=== PATIENT | male | born 1960 | race African-American/Black ===

== ENCOUNTER 2020-10-15 17:16 | Inpatient (IN) | payer MEDICARE ==
[~2020-10-15] VITALS: Ht 180.3 cm; Wt 91.2 kg
[2020-10-15] MEDS ORDERED: OLAN5TAB3 PO (17:34)
--- NOTE | 2020-10-15 17:38 | NUR ---
patient brought in by ambulance transfer from [facility] on a hold 5250 gravely disabled and a danger to self. reported by transport that patient was [place] sitting [place] the edge of over[place] and becoming combative with police and was taken to [facility] for evaluation where he was put on the hold. patient is getting cleared for admission at this time
--- NOTE | 2020-10-15 17:42 | NUR ---
patient assigned to room 145C admitting nurse is Cayla MARQUEZ.
[2020-10-15 17:49] LABS: BASOPHILS % (AUTO) 0.6 % (0.0-2.0); EOSINOPHILS # (AUTO) 0.1 K/uL (0.0-0.7); EOSINOPHILS % (AUTO) 0.8 % (0.0-7.0); HEMATOCRIT 42.9 % (36.7-47.1); HEMOGLOBIN 14.8 g/dL (12.5-16.3); LYMPHOCYTES # (AUTO) 1.9 K/uL (20.0-40.0); LYMPHOCYTES % (AUTO) 27.8 % (20.5-51.5); MEAN CORPUSCULAR HEMOGLOBIN 28.5 uug (23.8-33.4); MEAN CORPUSCULAR HGB CONC 35 g/dL (32.5-36.3); MEAN CORPUSCULAR VOLUME 82.5 fL (73.0-96.2); MONOCYTES # (AUTO) 0.5 K/uL (2.0-10.0); MONOCYTES % (AUTO) 7.9 % (0.0-11.0); NEUTROPHILS # (AUTO) 4.3 K/uL (1.8-8.9); NEUTROPHILS % (AUTO) 62.9 % (38.5-71.5); PLATELET COUNT (AUTO) 235 K/uL (152-348); WHITE BLOOD COUNT (AUTO) 6.8 K/uL (3.6-10.2)
[2020-10-15 17:51] LABS: CARBON DIOXIDE 30 mmol/L (21-32); CHLORIDE 100 mmol/L (98-107); GLUCOSE 101 mg/dL (74-106); UREA NITROGEN, BLOOD 22 mg/dL (7-18)
[2020-10-15 17:55] LABS: ETHANOL < 3 MG/DL (0-0)
[2020-10-15 17:57] LABS: ACETAMINOPHEN < 2.0 ug/mL (10-30); ALANINE AMINOTRANSFERASE 39 U/L (16-63); ALKALINE PHOSPHATASE 77 U/L (50-136); ASPARTATE AMINOTRANSFERASE 25 U/L (15-37); BILIRUBIN,DIRECT 0.1 mg/dL (0.0-0.2); BILIRUBIN,TOTAL 0.3 mg/dL (0.2-1.0); TOTAL PROTEIN, SERUM 8.6 g/dL (6.4-8.2)
--- NOTE | 2020-10-15 18:22 | NUR ---
report given to Saul MARQUEZ at this time.
--- NOTE | 2020-10-15 19:15 | NUR ---
Pt was brought on the unit at 1845. Pt is nonsensical and disorganized. Pt is disheveled and unkempt. No agitation. Pt is not able to answer questions, asking for food. A meal was provided. Skin check was done, skin is intact. Dr. Hwang and dr. England were notified. No family to be notified. Pt is unable to provide history. Report endorsed.
[2020-10-15] MEDS ORDERED: MAG HYDROX/AL HYDROX/SIMETH 30 ML LIQUID UDC PO PRN (19:30)
[2020-10-15] MEDS ORDERED: ACETAMINOPHEN 325 MG TABLET PO PRN (19:30)
[2020-10-15] MEDS ORDERED: MAGNESIUM HYDROXIDE 30 ML LIQUID UDC PO PRN (19:30)
[2020-10-15] MEDS ORDERED: BLOOD SUGAR DIAGNOSTIC 1 EACH STRIP VI ONE (20:00)
[2020-10-15 20:55] VITALS: BP 103/78
--- NOTE | 2020-10-15 21:11 | NUR ---
GPS: Pt.resting comfortably at this time. Pt's rights handbook and advisement given. Unit rules were explained. Pt.remains disorganized,rambling but not agitated. Safe environment provided. Needs attended.
--- NOTE | 2020-10-16 06:26 | NUR ---
GPS: Pt.currently in dining room area reading his bible. Remains disorganized,non-sensical,rambling at times and hyper-sabianism. No increased agitation noted. Safe environment provided. Will continue to monitor.
[2020-10-16 07:12] LABS: *BILIRUBIN,URIN NEGATIVE (NEGATIVE); *CLARITY,URINE CLEAR (CLEAR); *COLOR,URINE YELLOW (YELLOW); *KETONES,URINE NEGATIVE (NEGATIVE); *UROBILINOGEN,URINE 0.2 E.U./dl (NORMAL); LEUKOCYTE ESTERASE ,URINE NEGATIVE (NEGATIVE); NITRITE, URINE NEGATIVE (NEGATIVE); PH,URINE 5.5 (5.0-8.0); UGLUCOSE NEGATIVE (NEGATIVE)
[2020-10-16 07:17] LABS: *BLOOD, URINE TRACE (NEGATIVE)
[2020-10-16 07:21] LABS: *AMPHETAMINE, URINE NEGATIVE (NEGATIVE); *CANNABINOID, URINE NEGATIVE (NEGATIVE); *COCCAINE, URINE NEGATIVE (NEGATIVE); *OPIATE, URINE NEGATIVE (NEGATIVE); *PHENCYCLIDINE SCREEN,URINE NEGATIVE (NEGATIVE)
[2020-10-16 07:30] VITALS: BP 106/67
--- NOTE | 2020-10-16 08:26 | NUR ---
Firearms Report: Motor Vehicle Emissions Inspector completed and submitted a [employer] firearms report for 5150 grave disability certification. A copy of report has been placed in patient chart.
[2020-10-16 09:53] LABS: BACTERIA,URINE FEW /HPF (NONE SEEN); RBC,URINE 0-3 /HPF (0-3); SQUAMOUS EPITHELIAL CELL,UR FEW /HPF (NONE SEEN); WBC,URINE 0-3 /HPF (0-3)
--- NOTE | 2020-10-16 11:19 | NUR ---
Initial Discharge Plan: Patient is homeless and will require a placement. Patient unable to state at the moment what his discharge plan would be. Patient does not have any family members at this time. This SW will work with the patient and MD to help coordinate proper discharge.
--- NOTE | 2020-10-16 11:20 | NUR ---
Treatment Plan: This SW discussed treatment plan and discharge plan with pt. Pt appeared to be labile. Patient refused to sign his discharge plan due to being verbally aggressive.
--- NOTE | 2020-10-16 11:49 | NUR ---
Court Hearing: Patient's court hearing for 1390 was today and it was upheld for GD.
[2020-10-16] MEDS: OLANZAPINE 5 MG TABLET PO SCH ×2 (12:45→17:00)
[2020-10-16] MEDS: DIVALPROEX SPRINKLE 125 MG CAP.SPRINK PO SCH ×2 (13:00→17:00)
--- NOTE | 2020-10-16 13:57 | NUR ---
Patient refused due zyprexa and depakote at this time. Explained risks and benefits but patient still refused medications.
--- NOTE | 2020-10-16 14:35 | NUR ---
KEATON Individual Therapy: orchard worker met with patient for brief counseling to address patient's aggressive behavior. Patient presented with labile mood. Patient was hyperverbal and tangential. Patient was suspicious of this staff and did not want to have a conversation at this time. KEATON unable to conduct therapy.
[2020-10-16 16:45] VITALS: BP 93/67
[2020-10-16] MEDS: LORAZEPAM 1 MG TABLET PO PRN (20:28)
[2020-10-16] MEDS: ZOLPIDEM 5 MG TABLET PO PRN (23:29)
--- NOTE | 2020-10-16 23:38 | NUR ---
Up and about. Patient hyperverbal. No signs of aggressive behavior. Was able to give ativan without difficulty. Stays most in the lounge. Continent of bowel and bladder. Will monitor for any behavioral issues. Request for sleeping pill, given as ordered.
[2020-10-17 07:30] VITALS: BP 127/92
[2020-10-17] MEDS: DIVALPROEX SPRINKLE 125 MG CAP.SPRINK PO SCH ×3 (09:00→16:42)
[2020-10-17] MEDS: OLANZAPINE 5 MG TABLET PO SCH ×2 (09:00→16:43)
[2020-10-17] MEDS ORDERED: diphenhydrAMINE 50 MG/1 ML VIAL IM ONE (11:15)
[2020-10-17] MEDS ORDERED: HALOPERIDOL LACTATE 5 MG/1 ML VIAL IM ONE (11:15)
--- NOTE | 2020-10-17 11:16 | NUR ---
Emergency IM medication seen and Examine by Dr. Hwang with orders to give IM medication secondary to patient behaviort of manic, hyperverbal, unable to redirect, Patient received and tolerated the medication , VS WNL
--- NOTE | 2020-10-17 14:30 | NUR ---
SW Individual Therapy: fruit ii farmworker met with patient for brief counseling to address patient's aggressive behavior. Patient presented with labile mood. Patient appeared angry and uncooperative with this SW. SW unable to conduct therapy at this time.
[2020-10-17 16:55] VITALS: BP 140/90
--- NOTE | 2020-10-17 16:59 | NUR ---
patient continously refusing oral medication, patient redirectable, monitored q15 minutes no sign of distress at this time
[2020-10-17 20:21] VITALS: BP 119/80
[2020-10-18] MEDS: LORAZEPAM 1 MG TABLET PO PRN (03:17)
--- NOTE | 2020-10-18 05:56 | NUR ---
GPS: Remain cooperative with staff. Pt.currently sitting in dining room area reading his bible. Remains disorganized,rambling at times and hyper-yarsanism. slept 5.15 hrs through the night.No increased agitation noted at this time. ativan 1 mg po given @ 03:30 am per patient request for agitation and effective. Safe environment provided. Will continue to monitor.
[2020-10-18] MEDS: DIVALPROEX SPRINKLE 125 MG CAP.SPRINK PO SCH ×3 (08:22→17:00)
[2020-10-18] MEDS: OLANZAPINE 5 MG TABLET PO SCH ×2 (08:22→17:00)
[2020-10-18 08:30] VITALS: BP 116/82
--- NOTE | 2020-10-18 13:36 | NUR ---
Received patient AOx1, patient calm and cooperative, redirectable, compliant with medication, patient seen taking naps and reading in his room, mentally preoccupied ,, assisted with ADL, denies SI and HI, patient isolative , monitored [id number] for safety and elopement risk, no sign of distress at this time
[2020-10-18 16:20] VITALS: BP 123/75
[2020-10-18 20:00] VITALS: BP 118/81
--- NOTE | 2020-10-19 01:34 | NUR ---
patient c/o headache.tylenol 650 mg po given.
--- NOTE | 2020-10-19 02:35 | NUR ---
patient stated i am feeling better now. prn effective for pain.
--- NOTE | 2020-10-19 06:07 | NUR ---
GPS: Remain cooperative with staff. Remains disorganized,rambling at times and hyper-sabianist. slept 3.30 hrs through the night. No increased agitation noted at this time. Safe environment provided. Will continue to monitor.
[2020-10-19 07:30] VITALS: BP 137/88
[2020-10-19] MEDS: DIVALPROEX SPRINKLE 125 MG CAP.SPRINK PO SCH ×3 (08:37→16:38)
[2020-10-19] MEDS: OLANZAPINE 5 MG TABLET PO SCH ×2 (08:38→16:38)
[2020-10-19 15:17] VITALS: BP 128/78
--- NOTE | 2020-10-19 18:41 | NUR ---
Received patient confused and disoriented x2 talking to himself at all time,refused all medication No aggressive behavior noted at this time. pacing in hallway with poor insight and poor judgment Safe environment provided. Re-directed as needed.
--- NOTE | 2020-10-19 20:00 | NUR ---
RECEIVED PATIENT IN THE HALLWAY. HE IS NOTED A/O X 1. HE IS PACING BOBBI HALLWAY. CONTINUE WITH DISORGANIZED SPEECH, HYPERVERBAL, TANGENTAL. APPEARS TO RESPOND TO INTERNAL STIMULI. POOR HISTORIAN. HE IS HARD TO REDIRECT. REQUIRED MULTIPLE REDIRECTION AND TO SET LIMITS. REQUIRED REALITY CHECKS. NO SCHEDULE QHS MEDICATION AT THIS TIME. V/S STABLE. PATIENT IS REASSURED FOR HIS SAFETY. SAFETY AND FALL PRECAUTION IN PLACE. WILL CONTINUE TO MONITOR.
[2020-10-19 20:27] VITALS: BP 132/76
--- NOTE | 2020-10-19 23:45 | NUR ---
PATIENT NOTED AWAKE. STANDING IN THE DOORWAY OF HIS ROOM. HE IS NOTED READING AND TALKING TO HIMSELF. HE REQUIRED CONSTANT MONITORING AND REDIRECTION. HE WAS OFFERED DONNA BRADFORD PRN BUT HE REFUSED. WILL CONTINUE TO MONITOR CLOSELY.
--- NOTE | 2020-10-20 06:58 | NUR ---
patient slept for approx. 1/2 through the night. He is observed talking to himself. Word salad, not making any sense, and easily irritable.
[2020-10-20 07:30] VITALS: BP 150/89
[2020-10-20] MEDS: OLANZAPINE 5 MG TABLET PO SCH ×2 (08:34→17:00)
[2020-10-20] MEDS: DIVALPROEX SPRINKLE 125 MG CAP.SPRINK PO SCH ×4 (08:34→17:00)
[2020-10-20] MEDS ORDERED: HALOPERIDOL LACTATE 5 MG/1 ML VIAL IM ONE (13:00)
[2020-10-20] MEDS ORDERED: diphenhydrAMINE 50 MG/1 ML VIAL IM ONE (13:00)
--- NOTE | 2020-10-20 13:00 | NUR ---
Dr Heurta psychiatrist here to witness pt pacing around hallway and talking to himself. Notified Dr Huerta that pt did not sleep from last night and patient just refused his depakote. prior intervention of decreasing stimuli, keeping room quiet, distraction, and increased observation non effective. Pt becoming aggressive and threw a salad to dr Huerta. New orders received and carried out.
--- NOTE | 2020-10-20 13:30 | NUR ---
Gave Haldol and Benadryl as ordered IM on right deltoid for agitation and combativeness. Will monitor patient.
--- NOTE | 2020-10-20 14:00 | NUR ---
Pt sleeping noted respirations 17/min. medications effective. See behavioral violent flow sheet for respiration assessments.
--- NOTE | 2020-10-20 16:00 | NUR ---
PT refused full set of vitals from UPSET WELDING MACHINE OPERATOR and pt went back to sleep resp 18.
--- NOTE | 2020-10-20 21:00 | NUR ---
RECEIVED PATIENT IN THE HALLWAY. HE IS NOTED A/O X1. CONTINUE TALKING TO HIMSELF. HE DOES NOT MAKE ANY SENSE; HOWEVER, HE IS ABLE TO MAKE HIS NEEDS KNOWN. AFFECT IS BLUNTED MOOD IS IRRITABLE. PATIENT PRESENTS WITH DELUSIONAL THINKING RESPONDING TO INTERNAL STIMULI AND DISORGANIZED SPEECH. HE IS NOTED REEDING BOOKS, PAGES ARE SCATTERED ALL OVER HIS BED, CLUTTER. HE REQUIRED MULTIPLE REDIRECTION HE IS HARD TO REDIRECT. NO SCHEDULE [facility] MEDS AT THIS TIME. PATIENT REFUSED V/S. PO FLUIDS AND SNACK WERE GIVEN. WILL CONTINUE TO MONITOR.
--- NOTE | 2020-10-21 01:30 | NUR ---
PATIENT NOTED AWAKE. HE IS SITTING IN THE DAY ROOM READING A BOOK WITHOUT TALKING TO HIMSELF. PAGES SCATTERED ALL OVER THE TABLE. HE IS HARD TO REDIRECT, GETS EASILY IRRITABLE. HE REFUSED PO PRN "SLEEPING PILL". HE STATED "I DON'T TAKE MEDICATIONS". WILL CONTINUE TO MONITOR.
--- NOTE | 2020-10-21 06:40 | NUR ---
patient did not sleep last night. He was observed sitting in a chair reading a book and the bible. he was observed flipping pages over and over. Refused any PO PRN medication for insomnia. will continue to monitor.
[2020-10-21 07:30] VITALS: BP 123/80
--- NOTE | 2020-10-21 08:00 | NUR ---
pt hyperverbal talking to himself continuously. Pt reading his bible on hand and walks up and down the hallway.
[2020-10-21] MEDS: OLANZAPINE 5 MG TABLET PO SCH ×3 (08:24→21:00)
[2020-10-21] MEDS: DIVALPROEX SPRINKLE 125 MG CAP.SPRINK PO SCH ×3 (08:26→21:00)
[2020-10-21] MEDS ORDERED: HALOPERIDOL LACTATE 5 MG/1 ML VIAL IM PRN ×2 (10:15→17:00)
[2020-10-21] MEDS ORDERED: diphenhydrAMINE 50 MG/1 ML VIAL IM PRN (10:15)
[2020-10-21] MEDS ORDERED: OLANZAPINE 5 MG TABLET PO SCH (13:00)
--- NOTE | 2020-10-21 13:55 | NUR ---
KEATON Individual Therapy: sand car worker met with patient for brief counseling to address patient's aggressive behavior. Patient presented with labile mood. Patient pacing the hallway and responding to internal stimuli. Patient unable to conduct therapy at this time.
--- NOTE | 2020-10-21 18:30 | NUR ---
PT took his pills today. Pt slept 3 hrs this shift. Pt pacing in hallway and continues to talk to himself.
[2020-10-21 20:15] VITALS: BP 110/70
[2020-10-21] MEDS: diphenhydrAMINE 50 MG/1 ML VIAL IM PRN (21:02)
--- NOTE | 2020-10-22 06:34 | NUR ---
Patient refused p.o meds last night. IM given.Patient slept 4 hrs.Pacing back and forth the hallway this morning.Able to re-direct patient.
[2020-10-22] MEDS: OLANZAPINE 5 MG TABLET PO SCH ×3 (08:23→20:48)
[2020-10-22] MEDS: DIVALPROEX SPRINKLE 125 MG CAP.SPRINK PO SCH ×3 (08:23→20:48)
--- NOTE | 2020-10-22 13:23 | NUR ---
KEATON Individual Therapy: electrical lineworker met with patient for brief counseling to address patient's aggressive behavior. Patient presented with labile mood. Patient pacing the hallway and unable to have a proper conversation. Patient is responding to internal stimuli. Patient's speech is unclear. SW unable to conduct therapy at this time.
[2020-10-22 16:00] VITALS: BP 122/89
[2020-10-22 20:17] VITALS: BP 121/84
[2020-10-23] MEDS: ZOLPIDEM 5 MG TABLET PO PRN (00:20)
--- NOTE | 2020-10-23 00:21 | NUR ---
GPS: PATIENT UNABLE TO SLEEP. AMBIEN 5 MG PO GIVEN FOR SLEEP.
--- NOTE | 2020-10-23 06:19 | NUR ---
GPS: Remain cooperative with staff. Remains disorganized,rambling at times and hyper-hindu. slept 6.30 hrs through the night. after ambien 5 mg po given for sleep. No increased agitation noted at this time. per patient request for agitation and effective. Safe environment provided. Will continue to monitor.
[2020-10-23 07:30] VITALS: BP 124/70
[2020-10-23] MEDS: DIVALPROEX SPRINKLE 125 MG CAP.SPRINK PO SCH ×2 (08:46→20:24)
[2020-10-23] MEDS: OLANZAPINE 5 MG TABLET PO SCH (08:46)
[2020-10-23] MEDS ORDERED: HALOPERIDOL LACTATE 5 MG/1 ML VIAL IM PRN (13:33)
[2020-10-23] MEDS ORDERED: DIVALPROEX SPRINKLE 125 MG CAP.SPRINK PO ONE (13:45)
[2020-10-23] MEDS ORDERED: OLANZAPINE 5 MG TABLET PO ONE (13:45)
[2020-10-23 16:00] VITALS: BP 108/81
[2020-10-23] MEDS ORDERED: OLANZAPINE 5 MG TABLET PO SCH (18:00)
[2020-10-23 20:30] VITALS: BP 118/76
[2020-10-24] MEDS: ZOLPIDEM 5 MG TABLET PO PRN (00:59)
--- NOTE | 2020-10-24 05:40 | NUR ---
GPS: Remain cooperative with staff. Remains disorganized,rambling at times and hyper-islam. after Ambien 5 mg po given for sleep. No increased agitation noted at this time. per patient request for agitation and effective. Safe environment provided. Will continue to monitor.
--- NOTE | 2020-10-24 06:10 | NUR ---
SLEPT 7.30 HRS THROUGH THE NIGHT.
[2020-10-24] MEDS ORDERED: HALOPERIDOL LACTATE 5 MG/1 ML VIAL IM PRN (08:30)
[2020-10-24] MEDS: CLONAZEPAM 0.5 MG TABLET PO SCH ×4 (08:40→16:20)
[2020-10-24] MEDS: DIVALPROEX SPRINKLE 125 MG CAP.SPRINK PO SCH ×2 (08:40→21:20)
[2020-10-24] MEDS: HALOPERIDOL 5 MG TABLET PO SCH ×5 (08:40→21:20)
[2020-10-24] MEDS: BENZTROPINE MESYLATE 1 MG TABLET PO SCH ×2 (08:40→16:20)
[2020-10-24] MEDS ORDERED: chlorproMAZINE 50 MG/2 ML AMPUL IM ONE (12:30)
[2020-10-24] MEDS: diphenhydrAMINE 50 MG/1 ML VIAL IM PRN (12:37)
[2020-10-24 16:00] VITALS: BP 112/73
--- NOTE | 2020-10-24 17:34 | NUR ---
RECEIVED PATIENT MANIC , HYPERVERBAL, VERBALLY ABUSIVE, PACING IN THE HALLWAY, PATIENT THREW FOOD IN THE NURSING STATION AND URINATES IN THE DINING ROOM, PATIENT APPEARS DISORGANIZE, DELUSIONAL,THREW HIS ORAL MEDICATION DURING 9AM MEDICATION AND NEEDED TO GIVE RIESE PROTOCOL, PATIENT TOLERATED MEDICATION AND STARTED TO CALM DOWN, PATIENT LESS MANIC IN THE AFTERNOON AND TOOK HIS ORAL MEDICATION, WAS ON Q15 MINUTES MONITORING NO SIGN OF DISTRESS AT THIS TIME
[2020-10-24 20:26] VITALS: BP 109/71
--- NOTE | 2020-10-24 20:55 | NUR ---
received patient in the day room. he is noted watching TV and writing. Patient noted A/O x 1. mood is blunted, affect is Irritable. patient is unable to have a meaningful conversation with this aligner typewriter. appears to respond to internal stimuli. patient was able to comply with medication regiment. V/S stable, He is reassured for his safety. safety and fall [id number] in place. will continue to monitor.
--- NOTE | 2020-10-24 21:00 | NUR ---
received patient in the day room. he is noted watching TV and writing. Patient noted A? Addendum: 10/25/20 at 0207 by YO MICHAEL RN uncompleted nurse's note
--- NOTE | 2020-10-25 06:51 | NUR ---
Patient slept for approx 6.15 hrs through the night. he is noted pacing the hallway and talking to himself. required redirection. Pt had a shower this morning.
[2020-10-25 08:26] VITALS: BP 117/71
[2020-10-25] MEDS: CLONAZEPAM 0.5 MG TABLET PO SCH ×3 (09:14→16:28)
[2020-10-25] MEDS: HALOPERIDOL 5 MG TABLET PO SCH ×4 (09:14→20:16)
[2020-10-25] MEDS: BENZTROPINE MESYLATE 1 MG TABLET PO SCH ×2 (09:14→16:28)
[2020-10-25] MEDS: DIVALPROEX SPRINKLE 125 MG CAP.SPRINK PO SCH ×2 (09:14→20:16)
--- NOTE | 2020-10-25 16:36 | NUR ---
Received call from ANTONINO. Caller informed continuity writer they received a call from patient rimma and wanted to know patient was ok. English Tutor informed caller patient is confused and is currently in the hospital.
[2020-10-25 17:18] VITALS: BP 112/73
--- NOTE | 2020-10-25 18:44 | NUR ---
Patient in activity room most of shift, watching TV, writing or reading. No signs of acute distress. Patient easily irritable. Patient unable to have conversation with patient. Patient compliant with medication. Needs frequent redirection. Frequent patient rounding for safety. Will endorse to incoming shift for continuity of care.
--- NOTE | 2020-10-25 20:30 | NUR ---
RECEIVED PATIENT IN THE DAY ROOM. HE IS NOTED SITTING IN A CHAIR WATCHING TV. PATIENT IS UNABLE TO HAVE A MEANINGFUL CONVERSATION WITH THIS WAREHOUSE GENERAL LABORER. HE IS NOTED HYPERVERBAL, TALKING TO HIMSELF AND HOARDING. HOWEVER, HE IS NOTED LESS IRRITABLE LESS ANGRY. HE IS ABLE TO COMPLY WITH HIS MEDICATION REGIMENT DIET AND PLAN OF CARE. V/S STABLE, HE IS REASSURED FORT HIS SAFETY. SAFETY AND FALL PRECAUTION IN PLACE. WILL CONTINUE TO MONITOR.
[2020-10-25 22:02] VITALS: BP 105/75
--- NOTE | 2020-10-26 06:11 | NUR ---
PATIENT SLEPT FOR APPROX 6 HRS THROUGH THE NIGHT. NOTED LESS IRRITABLE LESS MANICY. HE IS COMPLIANT WITH MEDICATION REGIMENT DIET AND CARE. WILL CONTINUE TO MONITOR.
[2020-10-26 06:26] LABS: CREATININE 0.9 mg/dL (0.6-1.3); POTASSIUM 4.4 mmol/L (3.5-5.1)
[2020-10-26 07:30] VITALS: BP 115/70
[2020-10-26] MEDS: CLONAZEPAM 0.5 MG TABLET PO SCH ×3 (09:28→16:45)
[2020-10-26] MEDS: DIVALPROEX SPRINKLE 125 MG CAP.SPRINK PO SCH ×2 (09:28→20:29)
[2020-10-26] MEDS: HALOPERIDOL 5 MG TABLET PO SCH ×4 (09:28→20:29)
[2020-10-26] MEDS: BENZTROPINE MESYLATE 1 MG TABLET PO SCH ×2 (09:28→16:45)
[2020-10-26 16:00] VITALS: BP 115/80
--- NOTE | 2020-10-26 18:58 | NUR ---
Patient in activity room. Calm and cooperative. Vital signs stable. No signs of acute distress. Compliant with medications and care. Frequent patient rounding for safety. Patient mumbling to self. No aggressive or disruptive behavior noted. Will endorse to incoming shift for continuity of care,
--- NOTE | 2020-10-26 19:51 | NUR ---
RECEIVED PATIENT IN THE DAY ROOM, HE IS NOTED A/O X 1. HE CONTINUE HYPER-CHURCH, HE IS NOTED WATCHING THE "[employer]BAP[employer]ISM CHANNEL". HE THEN ASKED FOR A BIBLE. THEN HE ASKED FOR SNACKS. PATIENT NOTED LESS IRRITABLE, LESS PARANOID. HOWEVER, HE CONTINUE NEEDING REDIRECTION AND REASSURANCE. PATIENT IS REASSURED FOR HIS SAFETY. SAFETY AND FALL PRECAUTION IN PLACE. V/S STABLE. WILL CONTINUE TO MONITOR.
[2020-10-26 20:09] VITALS: BP 108/71
[2020-10-27 07:30] VITALS: BP 114/81
[2020-10-27] MEDS: HALOPERIDOL 5 MG TABLET PO SCH ×4 (09:01→20:16)
[2020-10-27] MEDS: BENZTROPINE MESYLATE 1 MG TABLET PO SCH ×2 (09:01→16:47)
[2020-10-27] MEDS: CLONAZEPAM 0.5 MG TABLET PO SCH ×3 (09:01→16:47)
[2020-10-27] MEDS: DIVALPROEX SPRINKLE 125 MG CAP.SPRINK PO SCH ×2 (09:01→20:16)
[2020-10-27] MEDS ORDERED: HALOPERIDOL DECANOATE 50 MG/1 ML AMPUL IM SCH ×2 (10:00→13:00)
--- NOTE | 2020-10-27 15:11 | NUR ---
KEATON Individual Therapy: terrazzo worker apprentice met with patient for brief counseling to address patient's aggressive behavior. Patient presented less labile. Pt unable to have a proper conversation. Patient's speech is unclear. SW unable to conduct therapy at this time.
[2020-10-27 15:37] VITALS: BP 109/80
[2020-10-27 20:14] VITALS: BP 112/78
--- NOTE | 2020-10-28 06:30 | NUR ---
GPS: Pt.slept for 7 hrs.last night. Currently showering at this time. Less anxious,hyperverbal and more re-directable. No aggressive behavior noted. Safety emphasized.
[2020-10-28 07:30] VITALS: BP 121/81
[2020-10-28] MEDS: HALOPERIDOL 5 MG TABLET PO SCH ×4 (09:00→16:59)
[2020-10-28] MEDS: DIVALPROEX SPRINKLE 125 MG CAP.SPRINK PO SCH ×2 (09:37→20:03)
[2020-10-28] MEDS: CLONAZEPAM 0.5 MG TABLET PO SCH ×3 (09:37→16:59)
[2020-10-28] MEDS: BENZTROPINE MESYLATE 1 MG TABLET PO SCH ×2 (09:38→16:59)
--- NOTE | 2020-10-28 09:45 | NUR ---
GPS: Nursing Notes: 09:00 Haldol Dose: Haldol 5mg PO frequently changed today from QID to BID by Dr. Hwang, medication to start today at 08:45 transcribed by pharmacy, but when medication was scan, it would start the medication again at 09:00 instead of 17:00. Spoke with pharmacist - Vivian, but she was unable to fix the problem. So Haldol 5mg PO given at 08:45 and the 09:00 dose not given, next dose at 17:00, continue to monitor for safety, continue with treatment plan.
--- NOTE | 2020-10-28 10:43 | NUR ---
SW Note: This SW spoke with patient in regards to his discharge plan. This SW stated if pt would want this auto service writer to find him a nursing facility. Pt agreed and would want to go to a nursing facility.
[2020-10-28 15:20] VITALS: BP 96/67
[2020-10-28 20:54] VITALS: BP 101/71
--- NOTE | 2020-10-29 07:28 | NUR ---
Received report from SHAILA Alvarez. All questions, comments, and concerns were addressed. Received patient awake in his assigned bed, bed is in low and locked position. Patient is alert and oriented to name only.
[2020-10-29 07:30] VITALS: BP 107/67
[2020-10-29] MEDS: CLONAZEPAM 0.5 MG TABLET PO SCH ×3 (08:03→16:10)
[2020-10-29] MEDS: BENZTROPINE MESYLATE 1 MG TABLET PO SCH ×2 (08:03→16:10)
[2020-10-29] MEDS: DIVALPROEX SPRINKLE 125 MG CAP.SPRINK PO SCH ×2 (08:03→20:03)
[2020-10-29] MEDS: HALOPERIDOL 5 MG TABLET PO SCH ×2 (08:03→16:10)
--- NOTE | 2020-10-29 10:24 | NUR ---
SNF Referral: This SW faxed patient's clinicals to [facility] ([phone]) directly to [facility] for placement option. SW faxed patient's H & P, progress notes, and medication list.
--- NOTE | 2020-10-29 12:35 | NUR ---
SNF Contact: This SW received a call from CJ admin from [facility] ([phone]) who stated pt is accepted.
--- NOTE | 2020-10-29 15:43 | NUR ---
Patient is cooperative and redirectable. He is restless and continually paces in the hallway. Patient noted with , he continually speaks to himself when no others are present. Patient is adherent with medication, no adverse reaction noted. Patient is able to ambulate independently. he is encouraged to perform self care and ADL's. patient encouraged to communicate needs to staff appropriately.
[2020-10-29 16:00] VITALS: BP 94/55
[2020-10-29 20:25] VITALS: BP 107/75
[2020-10-30 07:30] VITALS: BP 101/59
[2020-10-30] MEDS: BENZTROPINE MESYLATE 1 MG TABLET PO SCH ×2 (08:17→16:15)
[2020-10-30] MEDS: DIVALPROEX SPRINKLE 125 MG CAP.SPRINK PO SCH ×2 (08:17→20:39)
[2020-10-30] MEDS: HALOPERIDOL 5 MG TABLET PO SCH ×2 (08:17→16:15)
[2020-10-30] MEDS: CLONAZEPAM 0.5 MG TABLET PO SCH ×3 (08:17→16:15)
--- NOTE | 2020-10-30 12:06 | NUR ---
Court Hearing: Patient's court hearing for 30 day was today and it was upheld for GD.
[2020-10-30 16:00] VITALS: BP 112/75
[2020-10-30 20:20] VITALS: BP 121/78
[2020-10-30] MEDS: LORAZEPAM 1 MG TABLET PO PRN (20:40)
--- NOTE | 2020-10-31 06:41 | NUR ---
Received patient reading in bed. Patient compliant with medications. Slept 7.3 hours. Patient remained cooperative throughout shift. All patient needs were met and attended to. q15 min visual checks remain intact.
--- NOTE | 2020-10-31 08:11 | NUR ---
SW Discharge Note: Patient will be discharged to [facility] facility to [facility] [address] [place] [address]; ) via ambulance at 1PM. Accounting Machine Mechanic spoke with AQUILINO, Digital Controls Technical Officer at [facility]; ], who stated patient will be accepted at facility today. Patient does not have any family members at this time. Patient is alert and oriented x2, and is not able to plan for self-care at this time, but is willing to accept care provided for at the facility. Patient denies any suicidal or homicidal ideation. Patient is aware and agreeable with discharge plans. Patient will continue to follow-up with her (Psychiatrist) Dr. Hwang and (Hand Stemmer) Dr. Anderson at [facility] [address] [place] [address]; ). Patient will follow-up at the center. Patient presents with euthymic and congruent mood. Patient signed the homeless waiver upon discharge and a copy was placed in the chart. Homeless resources were provided and include [address] information line for shelters and homeless resources. A copy of all resources given to patient was also placed in the chart. Patient presented with euthymic mood and congruent affect.
[2020-10-31] MEDS: CLONAZEPAM 0.5 MG TABLET PO SCH ×2 (08:24→12:59)
[2020-10-31] MEDS: BENZTROPINE MESYLATE 1 MG TABLET PO SCH (08:24)
[2020-10-31] MEDS: DIVALPROEX SPRINKLE 125 MG CAP.SPRINK PO SCH (08:24)
[2020-10-31] MEDS: HALOPERIDOL 5 MG TABLET PO SCH (08:24)
[2020-10-31 08:46] VITALS: BP 109/76
--- NOTE | 2020-10-31 13:30 | NUR ---
Patient discharged to [facility]. Patient awake, alert and oriented x 1-2. no signs of distress. on room air. patient denies SI/ HI. Patient denies pain/ discomfort at this time. Vital signs stable. BP 117/79. WY 84. RR 18. Temp: 97.5. Patient given discharge instructions and discharge documents. Medication prescription in discharge packet. Homeless resources were provided to patient. Patient will follow up with Dr. Hwang (psychiatrist) and Dr. Anderson (Delivery Agent) at [facility]. ID lou removed. Report given to JIMMY Strickland of [facility]. Patient left unit via ambulance [facility]. Addendum: 10/31/20 at 1518 by ERLIN HERRERA RN RN Wrong time. Patient discharged at 1420.
[2020-11-26] MEDS ORDERED: HALOPERIDOL DECANOATE 50 MG/1 ML AMPUL IM SCH (13:00)
== END 2020-10-31 14:20 | DRG 885 ==
LOC: ER 17:16 → GPS 18:41
PROVIDERS: ADMIT Psychiatry & Neurology Psychiatry
DX: F25.0 Schizoaffective disorder, bipolar type (principal); R45.851 Suicidal ideations; F23 Brief psychotic disorder; Z20.822 Contact with and (suspected) exposure to COVID-19; R79.89 Other specified abnormal findings of blood chemistry; F29 Unspecified psychosis not due to a substance or known physiological condition; Z73.6 Limitation of activities due to disability; Z91.19 Patient's noncompliance with other medical treatment and regimen
CPT/HCPCS: 36415; 84443; 85025; 87086; 93005; A4663; G0480; J1200; J1630; J1631